=== PATIENT | male | born 1950 | race Caucasian/White ===

== ENCOUNTER → 2017-01-06 | Outpatient (CLI) | payer MEDICARE | END | disposition home or self-care (01) | DX: C61 Malignant neoplasm of prostate (principal); I25.10 Atherosclerotic heart disease of native coronary artery without angina pectoris; R91.8 Other nonspecific abnormal finding of lung field ==

== ENCOUNTER 2017-06-13 12:04 | Inpatient (IN) | payer MEDICARE ==
[~2017-06-13] VITALS: Ht 182.9 cm; Wt 76.2 kg
--- NOTE | ~2017-06-13 | CO ---
ADMIT: 06/13/2017 RM/LOC: 418 [facility] MR#: [id number] [address] ROMAN, HALEY Hein [address] [place] [address] Consultation SEX: M AGE: 66 : 1950 Corrected: 06/14/2017 1208 myrtle DATE OF CONSULTATION: 06/14/2017 ATTENDING PHYSICIAN: Zane Ashley CONSULTING PHYSICIAN: Catrachito Hammer MD CHIEF COMPLAINT: Chest tightness with recent surgical procedure to his leg. HISTORY OF PRESENT ILLNESS: The patient is a 66-year-old male, who is well known to us with a previous significant vascular history. He also has a significant coronary artery disease history with his most recent heart catheterization being in June of last year where he had a PCI to his circumflex. Several days ago, he underwent a left popliteal procedure by Dr. Vivas. Yesterday he began having some chest tightness. He describes this as substernal and is similar to previous symptoms he has had in the past with his coronary artery disease. He states that he also has noticed that he has been a little bit more short of breath because of these symptoms. He has not noticed any real radiation to his neck or his shoulders. He has not had any new palpitations. He has continued to have intermittent symptoms since being admitted. These have been somewhat responsive to nitroglycerin. We were asked to see him regarding his current chest pain with previous cardiac history. To this point, his heart enzymes have been negative. PAST MEDICAL HISTORY: 1. Significant for coronary artery disease with last heart catheterization performed in June of 2016. At that time, he was noted to have 100% mid-LAD occlusion. There was 30% left main stenosis and ostial 50% RCA stenosis. His STEELE to distal LAD and sequential diagonal 1 was patent. He had an 80% proximal and mid circ stenosis, which underwent treatment with a 2.75 x 12 Synergy stent. 2. Peripheral vascular disease with multiple procedures performed in the past. Please see our previous notes on him. His most recent procedure was a left popliteal treatment. I do not have all of the details of that surgery at this point. 3. History of carotid disease. 4. History of smoking. 5. Hypertension. 6. COPD. 7. History of prostate cancer with a previous radical prostatectomy, status post chemotherapy. 8. Reflux with Gomez esophagitis. 9. History of an iatrogenic perforation during a colonoscopy, which required laparotomy. 10.Hemorrhoidectomy. 11.Appendectomy. ADMIT: 06/13/2017 RM/LOC: 418 [facility] MR#: [id number] [address] [address] HALEY ROMAN [address] [place] [address] Consultation SEX: M AGE: 66 : 1950 ALLERGIES AND INTOLERANCES: Morphine, which had caused cardiac arrest. He has also had trouble with penicillin. HOME MEDICATIONS: 1. Plavix 75 mg daily. 2. Isosorbide mononitrate 30 mg daily. 3. Norvasc 5 mg daily. 4. Metoprolol 50 mg daily. 5. Atorvastatin 80 mg at bedtime. 6. Aspirin 81 mg daily. 7. Oxycodone 5 mg, one or two every 4 to 6 hours as needed. 8. Protonix 40 mg b.i.d. 9. Celexa 10 mg daily. 10.Amitriptyline 75 mg daily. 11.Multivitamin daily. 12.Chantix daily. FAMILY HISTORY: Significant for multiple family members who have had coronary artery disease and peripheral vascular disease. SOCIAL HISTORY: The patient is with his present. He is now retired. He has a significant history of smoking, but recently tried to quit and is on Chantix. He also has some alcohol use. REVIEW OF SYSTEMS: GENERAL: Denies fever, chills, sweats, rash, or weight loss. He has had some fatigue. He has had some shortness of breath. EYES: Denies double vision, blurred vision, cataracts, or glaucoma. ENT: Denies hearing loss or problems with nose, mouth or throat. PULMONARY: Denies cough, sputum production, asthma, emphysema or bronchitis. Denies snoring loudly, wakefulness at night, or fatigue upon awakening. GASTROINTESTINAL: Denies heartburn or difficulty swallowing. No change in bowel habits. Denies dark or bloody stools. No history of ulcers, hiatal hernia, or gallbladder or liver disease. GENITOURINARY: Denies dysuria, hematuria, nocturia, urinary tract infection, or kidney stones. Denies history of renal insufficiency or failure. MUSCULOSKELETAL: Denies gout. He has had recent pain from his surgical procedure on his left leg. He has some arthritis symptoms. ENDOCRINE: Denies history of thyroid dysfunction or diabetes. HEMATOLOGIC: Denies history of anemia, easy bruising, or cancer. NEUROLOGIC: Denies chronic headaches, dizziness, syncope, stroke, seizures or numbness or tingling. PSYCHIATRIC: Denies history of mental illness or feelings of depression. PHYSICAL EXAMINATION: VITAL SIGNS: Blood pressure 140s/60s, heart rate 70s, respirations 18, temperature afebrile. SKIN: [place], warm and dry. EYES: Sclerae clear. No xanthelasmas. ENT: Oral mucosa is pink and moist. No jugular venous distention. There ADMIT: 06/13/2017 RM/LOC: 418 [facility] MR#: [id number] [address] [place] [id number] HALEY ROMAN [address] [place] [address] Consultation SEX: M AGE: 66 : 1950 appeared to be bruits on the right and left carotids. CHEST: Respirations are even and unlabored. Lungs having diminished breath sounds throughout. HEART: Regular rate and rhythm. Normal S1, S2. No murmurs, rubs or gallops. ABDOMEN: Soft and nontender. MUSCULOSKELETAL: Gait is normal. EXTREMITIES: Peripheral pulses palpable. No clubbing, cyanosis or edema. He does have a surgical incision site noted over his left popliteal area. PSYCHIATRIC: Alert and oriented. Mood and affect are appropriate. ASSESSMENT: 1. Unstable angina. 2. History of coronary artery disease. 3. Peripheral vascular disease. 4. Hypertension. 5. Hyperlipidemia. 6. History of smoking. PLAN: The patient's symptoms are somewhat suspicious for coronary artery disease and with his significant previous history, I think the next best step is to have him undergo heart catheterization for unstable angina. Because of his significant peripheral disease and issues with access, we are going to plan on doing this at the [facility] in [place]. I think this can be done urgently, but not necessarily emergently, as his enzymes are negative. We will make arrangements for transfer today or first thing tomorrow for heart catheterization. We will continue with medical management. I am also going to add heparin. We will decide further treatment once this is completed. Catrachito Hammer MD/ herbie JOB #: [id number] CC: Zane Ashley, Attending Physician Zane Ashley, Family Physician Aguilar Dolan MD Corrected: 06/14/2017 1208 myrtle
--- NOTE | ~2017-06-13 | ER ---
ADMIT: 06/13/2017 RM/LOC: 418 [facility] MR#: [id number] [address] [address] HALEY ROMAN [address] [place] [address] Emergency Room Report SEX: M AGE: 66 : 1950 DATE: 06/13/2017 CHIEF COMPLAINT: Chest pain. HISTORY OF PRESENT ILLNESS: The patient is a 66-year-old male with significant peripheral vascular disease, previous coronary artery disease with DC, stents, and CABG who presents to the ER complaining of chest pain. This pain began this morning, few hours prior to arrival. It was a pressure in the center of his chest with associated diaphoresis, nausea, and shortness of breath. His symptoms were improved when he took nitroglycerin at home. They returned after approximately half an hour. He took another nitroglycerin and his chest pain improved again. When the pain came back after that, he called EMS. He got a nitroglycerin en-route and had resolution of his pain again. His recent history is significant for fem-pop bypass that was done 3 days ago at [facility] in [place] and he has been off his Plavix for the past 10 days prior to his surgery. He has no new complaints of pain, swelling in his left leg where he had a fem-pop bypass done. REVIEW OF SYSTEMS: Ten-point review of systems is done and otherwise negative except as in HPI. PAST MEDICAL HISTORY: Significant for coronary artery disease, DC, hyperlipidemia, GERD, Gomez's esophagus, peripheral vascular disease, and prostate cancer. PAST SURGICAL HISTORY: CABG, stents, aortic stent, multiple fem-pop bypasses, bowel perforation, rotator cuff surgery, and appendectomy. MEDICATIONS: See nurse's note. ALLERGIES: PENICILLIN AND MORPHINE. SOCIAL HISTORY: He still smokes cigarettes. Denies drug use. Does use alcohol occasionally. PHYSICAL EXAMINATION: See T-sheet. LABORATORY DATA: Hemoglobin is 11.5, white count 11.5. Chemistries are normal other than a mag of 1.6. First set of cardiac enzymes was negative. EKG showed right bundle branch block with left anterior fascicular block, sinus rhythm. No signs of acute DC. It was compared to a previous EKG and ADMIT: 06/13/2017 RM/LOC: 418 [facility] MR#: [id number] [address] [address] ROMANHALEY CHARLES Melvina [address] [place] [address] Emergency Room Report SEX: M AGE: 66 : 1950 looks very similar. Chest x-ray shows nothing acute. EMERGENCY DEPARTMENT COURSE: We did our cardiac routine on the patient and he had no chest pain initially, but he had slight return of his chest pain, so some nitroglycerin paste was placed. He had resolution of his pain with the nitroglycerin paste. I contacted the Family Practice service and we will admit the patient for further evaluation of his chest pain. DIAGNOSES: 1. Chest pain. 2. Peripheral vascular disease. Agustin Fontanez MD/ herbie JOB #: [id number] CC: Zane Ashley MD, Attending Physician Zane Ashley MD, Family Physician
--- NOTE | ~2017-06-13 | DS ---
ADMIT: 06/13/2017 RM/LOC: 418 [facility] MR#: [id number] [address] [address] HALEY ROMAN [address] [place] [address] General Discharge Summary SEX: M AGE: 66 : 1950 ADMISSION DATE: 06/13/2017 DISCHARGE DATE: 06/14/2017 DIAGNOSIS: Unstable angina. SECONDARY DIAGNOSES: 1. Peripheral vascular disease with recent femoral-popliteal bypass graft. 2. Prostate cancer, status post surgery and radiation. 3. Hypertension. 4. Chronic obstructive pulmonary disease. 5. Gastroesophageal reflux. 6. Coronary artery disease with unstable angina. CONSULTS THIS HOSPITALIZATION: [facility]. HISTORY OF PRESENT ILLNESS: The patient presented to the emergency room after 3 episodes for angina, relieved by nitroglycerin. He is 3 days' postop from left femoral-popliteal graft to below-knee popliteal bypass using the greater saphenous vein by Dr. Vivas. The procedure was uncomplicated, and the patient was discharged from the hospital. He reports the morning of admission that he had some indigestion and felt like he was running a fever. He had been told to hold his Plavix prior to surgery and did not realize he was to restart it afterwards and so had not been taking it on admission. HOSPITAL COURSE: The patient was admitted for acute coronary syndrome, rule out. Initial EKG and cardiac enzymes were normal as were his repeat enzymes. He was restarted on his Plavix. He had recently started Chantix for smoking cessation, and this was held due to increased risk of cardiac event and possible side effects of nausea. Continue [facility] to evaluate the patient and maybe assessment of unstable angina and recommend that he be transferred to [facility] for heart catheterization due to his issues with access. This was ordered to be done urgently but not emergently as his enzymes are negative. He was started on heparin per [facility] protocol. On 06/14/2017, the patient was transferred to [facility]. Emily Heller MD Resident / Zane Ashley MD / modl JOB #: [id number] CC: Zane Ashley MD, Attending Physician Zane Ashley MD, Family Physician
--- NOTE | 2017-06-16 09:13 | HP ---
ADMIT: 06/13/2017 RM/LOC: 418 [facility] MR#: [id number] [address] [address] HALEY ROMAN [address] [place] [address] History and Physical SEX: M AGE: 66 : 1950 DATE OF SERVICE: CHIEF COMPLAINT: Chest pain, general malaise, nausea. HISTORY OF PRESENT ILLNESS: The patient reported to emergency room today after recurrent episodes of chest pain. He reports that the discomfort was a pressure, substernal that was repeatedly relieved by nitroglycerin. He reports he had an episode and took a dose of nitroglycerin and was chest pressure free for about 30 minutes before it recurred when he then took another dose of nitroglycerin, which again relieved his symptoms. After the 3rd dose, he called EMS and was transported to the hospital and en route, they gave him aspirin and nitroglycerin and he said once he got to the emergency room, it was the best he had felt all day. He is 3 days postop from left femoral-popliteal graft to below-knee popliteal bypass using the greater saphenous vein surgery done by Dr. Vivas. The procedure was uncomplicated and the patient was discharged from the hospital. He reports that he has been feeling well until this morning. He reports that when he awoke, he was noted to have an upset stomach and also felt like he was feverish with a temperature measured at 99 degrees Fahrenheit. He states that he has had intermittent pain in his surgical site but not severe. Yesterday, he felt like he had a bulge behind his left knee which has since resolved. Denies any drainage from his incisions but has noticed increased edema and erythema surrounding his most distal incision. Since his hospitalization, he has been started on oxycodone for pain which he reports he has taken in the past without any side effects such as nausea, and he has also started taking Chantix for smoking cessation. He has taken this in the past without side effects as well. He is noted to be mildly hypoxemic with SpO2 of 93% on 1 L and states that he normally has an oxygen level 98-100%. Denies any shortness of breath or any increased cough or sputum production from baseline. He is currently chest pain free. He was given Zofran in the emergency room for nausea and then Maalox upon presentation to the floor. He was having some increased pain in his lower extremity after missing a dose of pain medicines, but that is now improving with treatment. PAST MEDICAL HISTORY: 1. Coronary artery disease with a CABG in 2002 and multiple cath with stent placement since. The most recently being 06/2016 with a stent to his mid OM1. He had a Lexiscan 01/2017 which was unchanged from previous with just a small-sized area, severe inferior posterior wall infarct. 2. Peripheral vascular disease with multiple interventions including bilateral aortofemoral bypass in the , left femoral endarterectomy in 2010, left common carotid axillary bypass in 2010, and right femoral- popliteal graft in 2011 and then his most recent bypass surgery. 3. Hypertension. 4. Tobacco use. Currently trying to quit using Chantix. 5. Dyslipidemia. 6. Chronic obstructive pulmonary disease. 7. Prostate cancer status post radical prostatectomy and chemotherapy now with increase in PSA, followed by Dr. Rivera. ADMIT: 06/13/2017 RM/LOC: 418 [facility] MR#: [id number] [address] [address] HALEY ROMAN [address] [place] [address] History and Physical SEX: M AGE: 66 : 1950 8. Gastroesophageal reflux disease and previous Gomez's esophagitis though none on his most recent EGD. PAST SURGICAL HISTORY: 1. Radical prostatectomy in 2008 for prostate cancer with known recent increase in PSA. No evidence of gross recurrence. 2. Interventions for peripheral vascular disease as listed above. 3. Laparotomy after iatrogenic perforation during colonoscopy. 4. Hemorrhoidectomy. 5. Appendectomy. ALLERGIES: 1. MORPHINE WITH A REPORT OF CARDIAC ARREST FOLLOWING. 2. HISTORY OF ANAPHYLAXIS WITH PENICILLIN, THOUGH REPORTS THAT HE HAS HAD SKIN TESTING DONE AT [facility] WHICH HE REPORTS THAT HE IS NO LONGER SENSITIZED. CURRENT MEDICATIONS: 1. Isosorbide ER 30 mg p.o. daily. 2. Plavix 75 mg p.o. daily which was held for a week prior to surgery and the patient was instructed to restart, but has not yet. 3. Oxycodone 5 mg, 1-2 tabs p.o. q.4-6 hours p.r.n. pain. 4. Aspirin 81 mg p.o. daily. 5. Protonix 40 mg p.o. b.i.d. 6. Celexa 10 mg p.o. daily. 7. Norvasc 5 mg p.o. daily. 8. Metoprolol 50 mg p.o. daily. 9. Amitriptyline 75 mg p.o. at bedtime. 10.Multivitamin 1 tab p.o. daily. 11.Atorvastatin 80 mg p.o. at bedtime. 12.Chantix. FAMILY HISTORY: The patient has a strong family history of coronary artery disease with his mother, father, brother, and sister all suffering from it, with his brother and father both having coronary artery bypass graft completed. SOCIAL HISTORY: The patient is , his at the bedside. He is retired. Until recently, he was an every day tobacco user and reports drinking 5 beers daily. REVIEW OF SYSTEMS: A 10-point review of systems was completed and negative except as noted in the HPI. PHYSICAL EXAMINATION: VITAL SIGNS: 145/59, 76, 18, 93% on room air, and 98.6. GENERAL: Awake, alert, and oriented, in no acute distress. Nontoxic appearing. ADMIT: 06/13/2017 RM/LOC: [address] [place] [address] MR#: [id number] [place] [address] [place] [id number] HALEY ROMAN [address] [place] [address] History and Physical SEX: M AGE: 66 : 1950 HEENT: Head is normocephalic and atraumatic. Pupils are equal, round, and reactive to light. Extraocular muscles intact. Mucous membranes are moist. NECK: Supple. No appreciable lymphadenopathy. HEART: Regular rate and rhythm. No carotid bruits. No JVD. LUNGS: Clear to auscultation bilaterally. ABDOMEN: Soft, nontender to palpation. Bowel sounds are present. EXTREMITIES: Left lower extremity with 3 surgical incisions closed with skin michael. All clean, dry, and intact. There is surrounding erythema and edema of his distal incision. No appreciable area of fluctuance. NEURO: Grossly intact. PSYCHIATRIC: Normal mood, affect. LABORATORY DATA: WBC 11.5, HGB 11.3, and platelets 174. Creatinine 0.8. CK 30, MB 0.9, index 3.0, troponin less than 0.015. Chest x-ray with chronic hyperinflation and peribronchial cuffing. No acute findings. EKG normal sinus rhythm at 76 beats per minute with right bundle branch block. ASSESSMENT: 1. Coronary artery disease with recurrent angina. 2. Peripheral vascular disease postoperative day 3 from femoral-popliteal bypass graft. 3. Hypertension. 4. History of prostate cancer. 5. Daily alcohol use. 6. History of tobacco use, desiring cessation. 7. Chronic obstructive pulmonary disease. 8. Gastroesophageal reflux disease. PLAN: The patient was admitted for acute coronary syndrome rule out. Initial EKG and cardiac enzymes were normal or at his baseline, we will repeat every 6 hours. We will repeat an EKG if there are any abnormal enzymes or recurrence of symptoms. We will restart the patient's Plavix, which he had not done after surgery. We will hold the patient's Chantix due to increased risk for cardiac event as well as the possibility of it causing his underlying nausea. We will monitor the patient for possible infection with his complaint of feeling feverish as well as his mild hypoxemia and we will ask him to do incentive spirometer 10 times hourly while awake. The patient may continue to use venous clamp for overflow incontinence. We will make [facility] aware that the patient is here. Emily Heller MD Resident / Aguilar Dolan MD / herbie JOB #: [id number] CC: Zane Ashley, Attending Physician ADMIT: 06/13/2017 RM/LOC: 418 [facility] MR#: [id number] [address] [address] HALEY ROMAN [address] [place] [address] History and Physical SEX: M AGE: 66 : 1950 Zane Ashley, Family Physician
== END 2017-06-14 11:29 | disposition short-term general hospital (02) | DRG 303 ==
LOC: ER 12:04 → 4PCU 13:56
PROVIDERS: ADMIT Family Medicine
DX: I25.110 Atherosclerotic heart disease of native coronary artery with unstable angina pectoris (principal); J44.9 Chronic obstructive pulmonary disease, unspecified; I45.2 Bifascicular block; I25.2 Old myocardial infarction; F17.210 Nicotine dependence, cigarettes, uncomplicated; E78.5 Hyperlipidemia, unspecified; K21.9 Gastro-esophageal reflux disease without esophagitis; I73.9 Peripheral vascular disease, unspecified; Z95.5 Presence of coronary angioplasty implant and graft; Z95.1 Presence of aortocoronary bypass graft; Z85.46 Personal history of malignant neoplasm of prostate; Z98.62 Peripheral vascular angioplasty status; Z79.02 Long term (current) use of antithrombotics/antiplatelets; Z79.82 Long term (current) use of aspirin; Z82.49 Family history of ischemic heart disease and other diseases of the circulatory system